=== PATIENT | female | born 1990 | race Two or more races ===

== ENCOUNTER 2017-05-14 18:01 | Observation (INO) | payer OTHER ==
[2017-05-14] MEDS ORDERED: IV RINGERS,LACTATED 1000ML 1,000 ML IV SCH (19:03)
[2017-05-14] MEDS ORDERED: ACETAMINOPHEN 325 MG TABLET. PO PRN (19:15)
== END 2017-05-14 20:35 | disposition home or self-care (01) ==
LOC: 3 SO LND 18:01
PROVIDERS: ADMIT Obstetrics & Gynecology; ATTEND Obstetrics & Gynecology
DX: O26.893 Other specified pregnancy related conditions, third trimester (principal); R10.30 Lower abdominal pain, unspecified; M54.9 Dorsalgia, unspecified; V49.40XA Driver injured in collision with unspecified motor vehicles in traffic accident, initial encounter; Y93.89 Activity, other specified; Y92.410 Unspecified street and highway as the place of occurrence of the external cause; Y99.8 Other external cause status; Z3A.36 36 weeks gestation of pregnancy
CPT/HCPCS: G0378; G0379